=== PATIENT | female | born 1995 | race American Indian/Alaskan Native ===

== ENCOUNTER 2019-01-07 23:18 | Emergency (ER) | payer BC ==
[2019-01-08 00:08] VITALS: BP 110/41
[2019-01-08 06:03] LABS: HCG Qualitative,Urine Positive (Negative)
== END 2019-01-08 04:00 | disposition left against medical advice (07) ==
LOC: ED 23:18
DX: S69.92XA Unspecified injury of left wrist, hand and finger(s), initial encounter (principal); X58.XXXA Exposure to other specified factors, initial encounter; Y93.89 Activity, other specified; Y92.89 Other specified places as the place of occurrence of the external cause; Y99.8 Other external cause status; Z53.21 Procedure and treatment not carried out due to patient leaving prior to being seen by health care provider
CPT/HCPCS: 81025